=== PATIENT | male | born 1940 | race Caucasian/White ===

== ENCOUNTER 2019-12-02 15:39 | Emergency (ER) | payer MEDICARE, BC ==
[2019-12-02] MEDS ORDERED: Silver Nitrate Applicator Each TOP ONE (16:14)
--- NOTE | 2019-12-02 16:23 | EDM.PDOC ---
ED HPI GENERAL MEDICAL PROBLEM - General Chief Complaint: Skin Complaint Stated Complaint: CUT SHAVING BELOW NOSE Time Seen by Provider: 12/02/19 16:05 Source of Information: Reports: Patient, Old Records, RN History Limitations: Reports: No Limitations - History of Present Illness INITIAL COMMENTS - FREE TEXT/NARRATIVE: 79 yo male on warfarin with an INR of 2.2 2 days ago presents with bleeding that won't stop from a small cut that occurred while shaving this afternoon on the L nostril. No hx of the same. Onset: Today, Sudden Onset Date: 12/02/19 Duration: Hour(s):, Constant Location: Reports: Face (L nares) Quality: Reports: Dull Severity: Mild Improves with: Reports: None Worsens with: Reports: None Context: Reports: Other (See HPI) Associated Symptoms: Reports: No Other Symptoms Treatments IMAGE CONSULTANT: Reports: Other (see below) (blotting of wound) - Related Data Allergies Allergy/AdvReac Type Severity Reaction Status Date / Time Penicillins Allergy Rash Verified 12/02/19 15:59 Home Meds: Home Meds Cholecalciferol (Vitamin D3) [Vitamin D3] 2,000 unit PO DAILY 12/02/19 [History] Magnesium Oxide [Magnesium] 400 mg PO DAILY 12/02/19 [History] Metoprolol Succinate [Toprol XL 50mg] 50 mg PO DAILY 12/02/19 [History] Omeprazole 20 mg PO DAILY 12/02/19 [History] Simvastatin 10 mg PO BEDTIME 12/02/19 [History] Warfarin [Coumadin] 5 mg PO DAILY 12/02/19 [History] Past Medical History HEENT History: Reports: Allergic Rhinitis Cardiovascular History: Reports: High Cholesterol, Hypertension, Other (See Below) Other Cardiovascular History: atrial flutter Respiratory History: Reports: Sleep Apnea Gastrointestinal History: Reports: None, Hiatal Hernia Genitourinary History: Reports: BPH Other Genitourinary History: elev psa Musculoskeletal History: Reports: Other (See Below) Other Musculoskeletal History: cervicialgia. rotator cuff tear Neurological History: Reports: Other (See Below) Other Neuro History: subarachnoid hemorrhage. transient global amnesia Other Hematologic History: vit d def Oncologic (Cancer) History: Reports: Basal Cell Carcinoma - Past Surgical History Head Surgeries/Procedures: Reports: None Social & Family History - Tobacco Use Smoking Status *Q: Former Smoker Used Tobacco, but Quit: Yes Month/Year Tobacco Last Used: unknown ED ROS GENERAL - Review of Systems Review Of Systems: See Below Constitutional: Reports: No Symptoms HEENT: Reports: No Symptoms Respiratory: Reports: No Symptoms Cardiovascular: Reports: No Symptoms Skin: Reports: Wound (small cut on L nares that is continuously oozing.). Denies: Bruising ED EXAM, SKIN/RASH Exam: See Below Exam Limited By: No Limitations General Appearance: Alert, WD/WN, No Apparent Distress Nose: Normal Inspection Throat/Mouth: Normal Inspection Head: Atraumatic, Normocephalic Neurological: Alert, Oriented, CN II-XII Intact, Normal Cognition, No Motor/Sensory Deficits Skin: Warm, Dry, Normal Color, No Rash, Wound/Incision (small 2 mm cut to the L nares with oozing. This stops with Silver nitrate cautery. ) Location, Skin: Face (L nares) Characteristics: Linear. No: Erythematous Associated features: No: Warmth, Tenderness Course - Vital Signs Text/Narrative:: Bleeding stopped with silver nitrate. Last Recorded V/S: Last Vital Signs Temp 35.8 C L 12/02/19 15:57 Pulse 83 12/02/19 15:57 Resp 12 12/02/19 15:57 BP 116/76 12/02/19 15:57 Pulse Ox 96 12/02/19 15:57 - Orders/Labs/Meds Meds: Medications Discontinued Medications Generic Name Dose Route Start Last Admin Trade Name Morris PRN Reason Stop Dose Admin Silver Nitrate 1 each 12/02/19 16:14 12/02/19 16:19 Silver Nitrate TOP 12/02/19 16:15 1 each ONETIME ONE Administration Departure - Departure Time of Disposition: 16:25 Disposition: Home, Self-Care 01 Condition: Good Clinical Impression: Bleeding - Discharge Information *PRESCRIPTION DRUG MONITORING PROGRAM REVIEWED*: No *COPY OF PRESCRIPTION DRUG MONITORING REPORT IN PATIENT CAYETANO: No Referrals: George Santos NP [Primary Care Provider] - Forms: ED Department Discharge Additional Instructions: Put antibiotic ointment on your wound twice a day for a couple days. Recheck as needed. Sepsis Event Note (ED) - Evaluation Sepsis Screening Result: No Definite Risk - Focused Exam Vital Signs: Vital Signs Temp Pulse Resp BP Pulse Ox 12/02/19 15:57 35.8 C L 83 12 116/76 96 08/20/20 15:54 35.8 C L 83 12 116/76 96
== END 2019-12-02 16:34 | disposition home or self-care (01) ==
LOC: JP.ED 15:39
DX: S01.21XA Laceration without foreign body of nose, initial encounter (principal); I10 Essential (primary) hypertension; E78.00 Pure hypercholesterolemia, unspecified; Z88.0 Allergy status to penicillin; Z87.891 Personal history of nicotine dependence; Z79.899 Other long term (current) drug therapy; Z79.01 Long term (current) use of anticoagulants; W26.8XXA Contact with other sharp object(s), not elsewhere classified, initial encounter
CPT/HCPCS: 12011; 99282; 99283